=== PATIENT | female | born 1995 | race African-American/Black ===

== ENCOUNTER 2023-02-28 14:52 | Emergency (ER) | payer OTHER ==
[2023-02-28 15:02] VITALS: BMI 25.7
[2023-02-28] MEDS ORDERED: DEXAMETHASONE LIQUID 0.5 MG/5 ML PO ONE (15:34)
[2023-02-28] MEDS ORDERED: ALBUTEROL SO4 2.5/IPRATROPIUM 0.5 INH SOL 3 ML VIAL.NEB. NEB ONE (15:53)
[2023-02-28] MEDS ORDERED: MAGNESIUM SULF 50% (8.12 MEQ/2 ML-1 GM VIAL) IVPB ONE (16:00)
[2023-02-28] MEDS ORDERED: methylPREDNISolone NA SUCC 125 MG/2 ML VIAL IVPUSH ONE (16:01)
[2023-02-28] MEDS ORDERED: MAGNESIUM SULFATE IN WATER 2 GM/50 ML IVPB IVPB ONE (16:07)
[2023-02-28] MEDS ORDERED: methylPREDNISolone NA SUCC 125 MG/2 ML VIAL ONE (16:07)
[2023-02-28] MEDS: ALBUTEROL SO4 2.5/IPRATROPIUM 0.5 INH SOL 3 ML VIAL.NEB. NEB SCH ×4 (16:14→16:37)
[2023-02-28 16:33] LABS: BASO % 0.6 % (0-2.0); EOS % 13.5 % (0-4.5); HEMATOCRIT 45.3 % (32.4-45.2); HEMOGLOBIN 15.6 GM/dL (10.7-15.3); LYMPH % 30.3 % (8-40); MCH 31.3 pg (25.7-33.7); MCHC 34.5 g/dl (32.0-36.0); MEAN CELL VOLUME 90.9 fl (80-96); MEAN PLT VOLUME 7.2 fl (7.5-11.1); MONO % 5.6 % (3.8-10.2); PLATELET COUNT 386 10^3/uL (134-434); RBC 4.99 M/mm3 (3.60-5.2); RDW 13.9 % (11.6-15.6); WHITE BLOOD COUNT 10.5 K/mm3 (4.0-10.0)
[2023-02-28] MEDS ORDERED: ALBUTEROL SO4 0.083% IH SOL 2.5 MG/3 ML VIAL.NEB. NEB ONE ×6 (16:48→22:51)
[2023-02-28 16:55] LABS: POTASSIUM 4.2 mmol/L (3.5-5.1)
[2023-02-28 16:57] LABS: CALCIUM 9.4 mg/dL (8.5-10.1)
[2023-02-28 16:58] LABS: ALBUMIN 3.9 g/dl (3.4-5.0); BLOOD UREA NITROGEN 8.8 mg/dL (7-18)
[2023-02-28 17:00] LABS: CREATININE 0.7 mg/dL (0.55-1.3)
[2023-02-28 17:02] LABS: BILIRUBIN,TOTAL 0.3 mg/dL (0.2-1); TOT PROT 7.6 g/dl (6.4-8.2)
[2023-03-01 00:01] VITALS: BP 107/70; PULSE 86; RESP 20; TEMP 97.7
== END 2023-03-01 00:33 | disposition home or self-care (01) ==
LOC: JER 14:52
PROC: 3E033GC Introduction of Other Therapeutic Substance into Peripheral Vein, Percutaneous Approach (ICD-10-PCS; principal; 2023-02-28)
PROC: 3E033GC Introduction of Other Therapeutic Substance into Peripheral Vein, Percutaneous Approach (ICD-10-PCS; 2023-02-28)
PROC: 3E0F7GC Introduction of Other Therapeutic Substance into Respiratory Tract, Via Natural or Artificial Opening (ICD-10-PCS; 2023-02-28)
PROC: 3E0F7GC Introduction of Other Therapeutic Substance into Respiratory Tract, Via Natural or Artificial Opening (ICD-10-PCS; 2023-02-28)
PROC: 3E0F7GC Introduction of Other Therapeutic Substance into Respiratory Tract, Via Natural or Artificial Opening (ICD-10-PCS; 2023-02-28)
DX: J45.901 Unspecified asthma with (acute) exacerbation (principal); R06.02 Shortness of breath; R09.81 Nasal congestion; R05.9 Cough, unspecified; J02.9 Acute pharyngitis, unspecified; R06.03 Acute respiratory distress; Z20.822 Contact with and (suspected) exposure to COVID-19
CPT/HCPCS: 0241U-QW; 36415; 71045-TC-FY; 80053; 84703; 85025; 99285-25

== ENCOUNTER 2023-06-16 09:36 | Emergency (ER) | payer BC, OTHER ==
[2023-06-16 10:23] VITALS: BP 180/70; PULSE 121; RESP 18; TEMP 98.3; BMI 25.0
[2023-06-16] MEDS ORDERED: predniSONE 20 MG TABLET (UD) PO ONE (10:55)
[2023-06-16] MEDS ORDERED: IPRATROPIUM BR 0.02% 0.5 MG/2.5 ML VIAL.NEB. NEB ONE ×2 (10:56→10:58)
[2023-06-16] MEDS ORDERED: ALBUTEROL SO4 2.5/IPRATROPIUM 0.5 INH SOL 3 ML VIAL.NEB. NEB ONE ×5 (10:58→13:08)
[2023-06-16] MEDS ORDERED: predniSONE 20 MG TABLET (UD) ONE (10:59)
[2023-06-16] MEDS: ALBUTEROL SO4 2.5/IPRATROPIUM 0.5 INH SOL 3 ML VIAL.NEB. NEB SCH ×7 (11:04→13:23)
== END 2023-06-16 13:41 | disposition home or self-care (01) ==
LOC: JER 09:36
PROC: 3E0F7GC Introduction of Other Therapeutic Substance into Respiratory Tract, Via Natural or Artificial Opening (ICD-10-PCS; principal; 2023-06-16)
PROC: 3E0F7GC Introduction of Other Therapeutic Substance into Respiratory Tract, Via Natural or Artificial Opening (ICD-10-PCS; 2023-06-16)
PROC: 3E0F7GC Introduction of Other Therapeutic Substance into Respiratory Tract, Via Natural or Artificial Opening (ICD-10-PCS; 2023-06-16)
DX: R05.9 Cough, unspecified (principal); R06.02 Shortness of breath; J45.41 Moderate persistent asthma with (acute) exacerbation; Z20.822 Contact with and (suspected) exposure to COVID-19
CPT/HCPCS: 0241U-QW; 99285-25